=== PATIENT | male | born 1965 | race Two or more races ===

== ENCOUNTER 2020-05-16 06:59 | Day surgery (SDC) | payer OTHER ==
[~2020-05-16] VITALS: Ht 175.3 cm; Wt 81.6 kg
[2020-05-16] VITALS (12 sets, daily range): BP systolic 123–175; BP diastolic 62–95
[2020-05-16 07:42] LABS: HEMOGLOBIN 15.5 g/dL (13.5-17.5)
[2020-05-16 07:45] LABS: BASOPHILS # (AUTO) 0.1 /CMM (0.0-0.2); BASOPHILS % (AUTO) 0.6 % (0.0-2.0); CALCIUM, SERUM 9.3 mg/dL (8.5-10.1); CREATININE 1.2 mg/dL (0.6-1.3); EOSINOPHILS % (AUTO) 1.5 % (0.0-6.0); HEMATOCRIT 45 % (39-51); LYMPHOCYTES # (AUTO) 2.7 /CMM (0.8-4.8); LYMPHOCYTES % (AUTO) 25.7 % (20.0-44.0); MEAN CORPUSCULAR HGB CONC 35 g/dl (31.0-36.0); MEAN CORPUSCULAR VOLUME 92 fL (80-96); MONOCYTES # (AUTO) 0.8 /CMM (0.1-1.30); MONOCYTES % (AUTO) 7.8 % (2.0-12.0); NEUTROPHILS # (AUTO) 6.7 /CMM (1.8-8.9); NEUTROPHILS % (AUTO) 64.4 % (43.0-81.0); PLATELET COUNT (AUTO) 249 /CMM (150-450); POTASSIUM 3.7 mmol/L (3.5-5.1); RED BLOOD CELL COUNT(AUTO) 4.88 MIL/uL (4.5-6.0); WHITE BLOOD COUNT (AUTO) 10.4 K/uL (4.3-11.0)
[2020-05-16 07:50] LABS: ALBUMIN 4.1 g/dL (3.4-5.0); BILIRUBIN,TOTAL 0.5 mg/dL (0.2-1.0); TOTAL PROTEIN, SERUM 8.9 g/dL (6.4-8.2)
[2020-05-16] MEDS ORDERED: ATOR40TA PO (08:58)
[2020-05-16] MEDS ORDERED: ASPI-1169 PO (08:59)
[2020-05-16] MEDS ORDERED: LISI-603 PO (08:59)
[2020-05-16] MEDS ORDERED: METF-442 PO (08:59)
[2020-05-16] MEDS ORDERED: IV SET PRIMARY PUMP SET 1 EA INFUS.SET MC ONE (09:11)
[2020-05-16] MEDS ORDERED: IV NS 0.9% 500 ML IV ONE (09:11)
[2020-05-16] MEDS ORDERED: IODIXANOL 150 ML IV ONE (09:12)
[2020-05-16] MEDS ORDERED: LIDOCAINE HCL/PF 1% 30 ML SDV ONE (09:12)
[2020-05-16] MEDS ORDERED: FENTANYL PF 100MCG/2ML AMPUL ONE (09:38)
[2020-05-16] MEDS ORDERED: MIDAZOLAM HCL 2 MG/2ML VIAL ONE (09:38)
[2020-05-16] MEDS ORDERED: NITROGLYCERIN ICAR 1,000 MCG/10 ML VIAL ICAR ONE (09:56)
--- NOTE | 2020-05-16 12:21 | NUR ---
4ml of air removed from TR band. No bleeding noted. VSS.
--- NOTE | 2020-05-16 12:36 | NUR ---
4ml of air removed from TR Band. TR band removed completely with no bleeding noted on site. Applied pressure with 2x2 gauze. Will continuously monitor the patient.
--- NOTE | 2020-05-16 12:50 | NUR ---
CMS WNL. Patient denies any pain or discomfort. VSS.
--- NOTE | 2020-05-16 13:49 | NUR ---
IV removed. Catheter intact and site benign. Pressure and 4x4 applied to site. No bleeding noted.Patient discharged to home in stable condition. Written and verbal after care instructions given. Patient verbalizes understanding of instruction.
== END 2020-05-16 13:52 | disposition home or self-care (01) ==
LOC: CATHLAB 06:59
PROVIDERS: ATTEND Internal Medicine
DX: I25.10 Atherosclerotic heart disease of native coronary artery without angina pectoris (principal)
CPT/HCPCS: 36415; 80053; 85025; 85610; 85730; 87426; 93005; 93458; 99152; C1887; C9803; J1644; J2250; J3010; J3490; J7040; Q9967; 93452; G0500